=== PATIENT | female | born 1945 | race Caucasian/White ===

== ENCOUNTER → 2016-11-06 | Outpatient (CLI) | payer MEDICARE, BC | END | disposition home or self-care (01) | LOC: LABWHC1 16:48 | PROVIDERS: ATTEND Psychiatry & Neurology Pain Medicine | DX: R20.2 Paresthesia of skin (principal) | CPT/HCPCS: 36415; 83519 ==

== ENCOUNTER → 2017-08-09 | Outpatient (CLI) | payer MEDICARE, BC ==
--- NOTE | 2017-08-09 14:01 | CT ---
EXAMINATION TYPE: CT brain wo con DATE OF EXAM: 08/09/2017 COMPARISON: NONE HISTORY: 72-year-old female with fall and pain TECHNIQUE: Examination was done in axial plane without intravenous contrast. Coronal and sagittal r econstructions performed. CT DLP: 1121 mGycm Automated exposure control for dose reduction was used. FINDINGS: There is no evidence of acute intracranial hemorrhage, acute ischemic changes, mass, mass-effect, or extra-axial fluid collection. There is no effacement of cerebral sulci or basal subarachnoid cister ns. There is no hydrocephalus. There is no midline shift. Youssef-white matter distinction is preserv ed. Prominent perineural space versus old lacunar infarct left basal ganglia. Leftward nasal septal deviation. Left frontal sinus hypoplastic. Mild mucosal thickening floor of the right maxillary sinus. Mastoid air cells well pneumatized. IMPRESSION: No acute intracranial abnormality seen. Old lacunar infarct versus prominent perivascular space in th e left basal ganglia.
== END | disposition home or self-care (01) ==
LOC: RADCTMAIN 13:22
PROVIDERS: ATTEND Internal Medicine
DX: S00.83XA Contusion of other part of head, initial encounter (principal)
CPT/HCPCS: 70450

== ENCOUNTER → 2018-01-26 | Outpatient (CLI) | payer MEDICARE, BC ==
--- NOTE | 2018-01-26 16:19 | XR ---
Left ankle and left foot HISTORY: Left ankle and left foot pain No comparisons There is postop changes to the second digit. Ankylosis is present at the proximal interphalangeal nevin nt, distal interphalangeal joint. Cerclage wire is in place. Bone mineralization is reduced. There is mild hallux valgus deformity present. Arthropathy noted at the distal interphalangeal joint of the t hird and fifth digits. There is arthropathy present at the tarsometatarsal joint of the first digit, intertarsal joints. Plantar calcaneal spur is present. Calcification present along the plantar aponeu rosis. Tibiotalar joint is intact. Some mild marginal spurring. IMPRESSION: Osteoarthritis. No definite fracture or dislocation, decreased bone mineralization could limit sensitivity, follow-up as indicated.
== END ==
LOC: RADXRYALE 13:53
PROVIDERS: ATTEND Internal Medicine
DX: M19.072 Primary osteoarthritis, left ankle and foot (principal)

== ENCOUNTER → 2018-04-13 | Outpatient (CLI) | payer MEDICARE, BC ==
--- NOTE | 2018-04-14 07:07 | US ---
EXAMINATION TYPE: US venous Doppler duplex LE RT DATE OF EXAM: 04/13/2018 5:10 PM COMPARISON: NONE CLINICAL HISTORY: I80.9 Phlebitis and thrombophlebitis of unspecified. Patient stated has right calf pain today and x 2 months; denies leg swelling; history of morphine pump for prior back surgeries at cervical neck and lumbar areas. SIDE PERFORMED: Right TECHNIQUE: The lower extremity deep venous system is examined utilizing real time linear array sonog robert with graded compression, Doppler sonography and color-flow sonography. VESSELS IMAGED: Common Femoral Vein Deep Femoral Vein Greater Saphenous Vein * Femoral Vein Popliteal Vein Small Saphenous Vein * Proximal Calf Veins (* superficial vessels) Right Leg: Negative for DVT IMPRESSION: There is no evidence for DVT at this time.
== END | disposition home or self-care (01) ==
LOC: RADUSWWP 16:41
PROVIDERS: ATTEND Orthopaedic Surgery Hand Surgery
DX: M79.661 Pain in right lower leg (principal)

== ENCOUNTER 2018-12-14 11:44 | Day surgery (SDC) | payer MEDICARE ==
[2018-12-12 11:12] VITALS: BMI 30.7
[~2018-12-14 11:44] MED LIST: DEXAMETHASONE SOD PHOSPHATE 10 MG/ML 1 ML VIAL IV ONE; LIDOCAINE 1% 20 ML VIAL (10MG/ML) FOR IV START INTRADERMA PRN; MIDAZOLAM 2 MG/2 ML VIAL IV PRN; ONDANSETRON 4 MG/2 ML VIAL IVP ONE; fentaNYL (PF) 50 MCG/ML 2 ML AMP IV PRN
[2018-12-14] MEDS: LACTATED RINGERS 1,000 ML IV SCH ×2 (12:13→12:54)
[2018-12-14] MEDS ORDERED: PROPOFOL 10 MG/ML 20 ML VIAL IV ONE (12:51)
[2018-12-14] MEDS ORDERED: KETAMINE 10 MG/ML 20 ML VIAL ONE (12:51)
[2018-12-14] MEDS ORDERED: LIDOCAINE 1% INJ 10MG/ML (20 ML MDV) ONE (12:51)
[2018-12-14] MEDS ORDERED: MIDAZOLAM 2 MG/2 ML VIAL ONE (12:51)
[2018-12-14] MEDS ORDERED: ROPIVACAINE 5 MG/ML 30 ML VIAL MISCELLANE ONE (13:05)
--- NOTE | 2018-12-14 13:45 | P.OP ---
Date of Procedure: 12/14/18 Preoperative Diagnosis: Hammer digit deformity third digit left foot Postoperative Diagnosis: Same Procedure(s) Performed: Arthrodesis third digit left foot with pin fixation Surgeon: Gordy Montoya Operative Findings: Unremarkable Description of Procedure: On the date of surgery the patient was taken to the operating room in good condition. She was placed on the operating table in supine position where an IV was started and adequate IV anesthetic agents were utilized. Anesthesia was then further supplemented with approximately 6 mL of 5% ropivacaine given in a digital block to the third ray complex of the patient's left foot The patient's left foot were then prepped and draped in usual aseptic manner and web roll padding was placed above the malleoli of the patient's left ankle The patient's left foot and ankle were then elevated and exsanguinated of blood utilizing an Esmarch bandage. The ankle tourniquet was then inflated proximally 250 mmHg At this time attention was directed to the dorsal aspect of the third digit of the left foot where an approximately 2 cm linear incision was made the incision was deepened via sharp dissection down through the level of subcutaneous tissue layers all neurovascular structures encountered were identified isolated and were retracted deep along the medial and lateral sides of the proximal interphalangeal joint using blunt technique. The extensor digitorum longus tendon overlying the proximal interphalangeal joint was then incised sharply and underscored and retracted from the underlying bone collateral ligaments on either side of the joint were then incised sharply the head of the capital fragment of the proximal phalanx was then developed through the incision site and clamped utilizing I will clamp the head was resected it a 90 angle to the shaft and removed in total from the surgical site. This oscillating bone saw was then used to remove the base of the middle phalanx. Throughout the surgical procedure copious amounts sterile saline solution was used to irrigate the surgical site a 0.045 K wire was then driven distally through the middle and distal phalanx and then retrograded back into the proximal phalanx. Ends of extensor digitorum longus to the third toe were then shortened and coaptated and maintained utilizing 3-0 excised in simple interrupted suture. Skin edges were then coaptated and maintained utilizing 4-0 nylon simple interrupted suture Adaptic Kerlix fluffs four-inch conformer and 4 inch Coban was used to form a compression dressing and the ankle tourniquet to the left ankle was deflated adequate hemostatic return was seen in all digits of the left foot specifically the third toe the patient tolerated the surgery and anesthesia well was taken to recovery room in good postoperative condition
[2018-12-14 13:49] VITALS: TEMP 97.8
[2018-12-14 14:24] VITALS: RESP 18
[2018-12-14 15:11] VITALS: BP 147/80; PULSE 91
== END 2018-12-14 15:42 | disposition home or self-care (01) ==
LOC: OR 11:44
PROVIDERS: ATTEND Podiatrist Foot & Ankle Surgery
DX: M20.42 Other hammer toe(s) (acquired), left foot (principal); F41.9 Anxiety disorder, unspecified; I10 Essential (primary) hypertension; Z90.710 Acquired absence of both cervix and uterus; Z98.51 Tubal ligation status; Z96.692 Finger-joint replacement of left hand; G89.29 Other chronic pain; Z96.89 Presence of other specified functional implants; Z79.891 Long term (current) use of opiate analgesic; G25.81 Restless legs syndrome; G43.909 Migraine, unspecified, not intractable, without status migrainosus; E04.1 Nontoxic single thyroid nodule; K21.9 Gastro-esophageal reflux disease without esophagitis; J45.909 Unspecified asthma, uncomplicated; G47.33 Obstructive sleep apnea (adult) (pediatric); Z86.73 Personal history of transient ischemic attack (TIA), and cerebral infarction without residual deficits; K76.0 Fatty (change of) liver, not elsewhere classified; Z88.2 Allergy status to sulfonamides; Z88.8 Allergy status to other drugs, medicaments and biological substances; Z88.6 Allergy status to analgesic agent; Z91.041 Radiographic dye allergy status; Z79.899 Other long term (current) drug therapy
CPT/HCPCS: 28285; C1713; J2250; J1100; J0690; J2405; J2001; J2795; J2704

== ENCOUNTER → 2019-10-04 | Outpatient (CLI) | payer MEDICARE ==
--- NOTE | 2019-10-04 16:56 | CONS ---
CONSULTATION DATE OF SERVICE: 10/04/2019. A 74-year-old lady who has been [facility] for obstructive sleep apnea-hypopnea syndrome. The patient has been diagnosed with obstructive sleep apnea [place] started on treatment with CPAP there, but stopped using equipment more than 3 years ago. Presently, her sleep schedule from around 10 p.m. to 8 am. No TV in bedroom. She sleeps primarily on the side position. She wakes up from sleep 4 times with 4 episodes of nocturia. Positive history of sleepwalking, palpitation, sleep talking, sweating during the sleep, episodes of choking, stopped breathing, gasping for air. In the morning, patient wakes up tired, falling asleep during the day, worried about her sleep. [place] Sleepiness Scale is in extremely high range of 23. PAST MEDICAL HISTORY: Positive for hypertension, acid reflux, rheumatoid arthritis, morphine pump. PAST SURGICAL HISTORY: Cholecystectomy, hysterectomy, surgery for right knee fracture. MEDICATIONS: Citalopram, omeprazole, losartan, hydrochlorothiazide, Baclofen, diltiazem, hydrocodone, potassium supplement, furosemide, different vitamins, diphenhydramine, fluticasone. SOCIAL HISTORY: Negative for smoking or using alcohol. REVIEW OF SYSTEMS: Multiple awakenings from sleep, tiredness and sleepiness during the day. PHYSICAL EXAM: lady without distress, BP 146/58, HR 72, RR 16, height 5, 3, weight 189, body mass index 32, temperature 98.0, oxygen saturation at room air 93%. OROPHARYNX: Extremely low position of soft palate. Mallampati 4. Neck 16-1/2 inches in circumference. ABDOMEN: Obese. NECK: Supple, no JVD. Thyroid is not palpable. LUNGS: Clear to percussion and to auscultation. Good air exchange. No wheezing or rhonchi. HEART: S1, S2 regular. No murmurs, gallops, or rubs. EXTREMITIES: No clubbing or cyanosis. 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 Cranial nerves 2 to 7 intact. There is no fasciculation or atrophy. noted. No focal deficits observed. IMPRESSION: 1. Multiple awakenings from sleep with choking and gasping for air. Extremely significant excessive daytime sleepiness. Low position of soft palate. 2. History of obstructive sleep apnea in the past. Obstructive sleep apnea-hypopnea syndrome. 3. Patient is on morphine pump, possibly central sleep apnea. 4. Hypertension. 5. Acid reflux. 6. 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 7. History of rheumatoid arthritis. 8. Morphine pump. 9. Status post surgical treatment of right knee fracture. 10.Status post L5 laminectomy. 11.Status post cholecystectomy. 12.Status post hysterectomy. 13.Obesity, body mass index 32. PLAN: 1. Polysomnography for evaluation of patient's breathing during sleep. 2. CPAP/BiPAP titration if sleep study confirms obstructive sleep apnea-hypopnea syndrome. 3. Preferable position during sleep on the side. 4. No driving if patient feels any sleepiness. 5. I will see patient for follow up visit to explain results of testing and following plan. Thank you very much for referring this patient for consultation. Sincerely, Garrick Morrison MD, PhD, FAASM Diplomat of [place] [employer] [place] [employer] [facility] [place] MMODL / LOYDAN: [id number] /
== END | disposition home or self-care (01) ==
LOC: SLEEP 14:29
PROVIDERS: ATTEND Internal Medicine
DX: G47.33 Obstructive sleep apnea (adult) (pediatric) (principal); I10 Essential (primary) hypertension; K21.9 Gastro-esophageal reflux disease without esophagitis; E66.9 Obesity, unspecified; Z68.32 Body mass index [BMI] 32.0-32.9, adult; Z90.49 Acquired absence of other specified parts of digestive tract; Z98.1 Arthrodesis status; Z98.890 Other specified postprocedural states; Z90.710 Acquired absence of both cervix and uterus; Z79.891 Long term (current) use of opiate analgesic; Z79.899 Other long term (current) drug therapy
CPT/HCPCS: 99211

== ENCOUNTER → 2022-12-28 | Outpatient (CLI) | payer MEDICARE ==
[2022-12-28 16:46] LABS: INR 0.9 (<1.2); Partial Thromboplastin Time 24.9 sec (22.0-30.0); Prothrombin Time 10.1 sec (9.0-12.0)
[2022-12-28 19:42] LABS: Appearance,Urine Clear (Clear); Bilirubin,Urine Negative (Negative); Blood,Urine Negative (Negative); Color,Urine Yellow (Yellow); Ketones,Urine Negative (Negative); Nitrite,Urine Negative (Negative); PH, Urine 8.5; Specific Gravity,Urine 1.017 (1.001-1.030); Urobilinogen,Urine 0.2 E.U./DL
[2022-12-28 19:48] LABS: Bacteria,Urine None Seen (None Seen)
[2022-12-28 21:15] LABS: HCT 40.4 % (37.2-46.3); HGB 12.7 d/dL (12.0-15.0); MCH 29.2 pg (27.0-32.0); MCHC 31.4 d/dL (32.0-37.0); MCV 92.9 FL (80.0-97.0); Mean Platelet Volume 11.5 FL (9.5-12.2); NRBC Per 100 WBC 0 X 10*3/uL (0.00-0.01); Platelet Count 166 X 10*3/uL (140-440); RBC 4.35 X 10*6/uL (4.10-5.20); RDW 12.8 % (11.5-14.5); WBC 5.88 X 10*3/uL (4.50-10.00)
[2022-12-28 21:35] LABS: BUN/Creat Ratio 13.83 Ratio (12.00-20.00); Blood Urea Nitrogen 8.3 mg/dL (9.0-27.0); Chloride 100 mmol/L (96-109); Glucose 82 mg/dL (70-110); Potassium 4.2 mmol/L (3.5-5.5); Sodium 140 mmol/L (135-145)
[2022-12-28 21:36] LABS: ALT 16 U/L (8-44); AST 21 U/L (13-35); Albumin 4.6 d/dL (3.8-4.9); Albumin/Globulin Ratio 1.92 Ratio (1.60-3.17); Alkaline Phosphatase 108 U/L (41-126); Calcium 9.5 mg/dL (8.7-10.3); Carbon Dioxide 28.4 mmol/L (21.6-31.8); Globulin 2.4 d/dL (1.6-3.3); Total Bilirubin 0.3 mg/dL (0.3-1.2)
== END | disposition home or self-care (01) ==
LOC: LABPAT 14:58
PROVIDERS: ATTEND Orthopaedic Surgery
DX: Z01.812 Encounter for preprocedural laboratory examination (principal); M19.012 Primary osteoarthritis, left shoulder; R61 Generalized hyperhidrosis; R11.0 Nausea; R68.83 Chills (without fever); R73.01 Impaired fasting glucose
CPT/HCPCS: 80053; 81001; 83036; 84443; 85027; 85610; 85730; 87070

== ENCOUNTER → 2023-06-24 | Outpatient (CLI) | payer MEDICARE ==
[2023-06-24 13:26] LABS: Partial Thromboplastin Time 25.2 sec (22.0-30.0); Prothrombin Time 10.5 sec (10.0-12.5)
[2023-06-24 16:03] LABS: ALT 12 U/L (8-44); AST 13 U/L (13-35); Albumin 4.4 g/dL (3.8-4.9); Albumin/Globulin Ratio 1.91 Ratio (1.60-3.17); Alkaline Phosphatase 107 U/L (41-126); BUN/Creat Ratio 18.17 Ratio (12.00-20.00); Blood Urea Nitrogen 10.9 mg/dL (9.0-27.0); Calcium 9.4 mg/dL (8.7-10.3); Carbon Dioxide 28.7 mmol/L (21.6-31.8); Chloride 101 mmol/L (96-109); Globulin 2.3 g/dL (1.6-3.3); Glucose 100 mg/dL (70-110); Potassium 4.2 mmol/L (3.5-5.5); Sodium 140 mmol/L (135-145); Total Bilirubin 0.3 mg/dL (0.3-1.2); Total Protein 6.7 g/dL (6.2-8.2)
[2023-06-24 17:03] LABS: HGB 11.6 g/dL (12.0-15.0); MCH 28.1 pg (27.0-32.0); MCHC 31.4 g/dL (32.0-37.0); MCV 89.6 FL (80.0-97.0); Mean Platelet Volume 11.7 FL (9.5-12.2); NRBC Per 100 WBC 0 X 10*3/uL (0.00-0.01); Platelet Count 169 X 10*3/uL (140-440); RBC 4.13 X 10*6/uL (4.10-5.20); RDW 13.4 % (11.5-14.5); WBC 5.39 X 10*3/uL (4.50-10.00)
== END | disposition home or self-care (01) ==
LOC: LABPAT 12:14
PROVIDERS: ATTEND Orthopaedic Surgery
DX: Z01.812 Encounter for preprocedural laboratory examination (principal); Z22.322 Carrier or suspected carrier of Methicillin resistant Staphylococcus aureus; M16.11 Unilateral primary osteoarthritis, right hip
CPT/HCPCS: 36415; 80053; 85027; 85610; 85730; 86850; 86900; 86901; 87070

== ENCOUNTER 2023-07-05 05:38 | Inpatient (IN) | payer MEDICARE ==
[~2023-07-05 05:38] MED LIST changes: -DEXAMETHASONE SOD PHOSPHATE 10 MG/ML 1 ML VIAL IV ONE; -LIDOCAINE 1% 20 ML VIAL (10MG/ML) FOR IV START INTRADERMA PRN; -MIDAZOLAM 2 MG/2 ML VIAL IV PRN; -ONDANSETRON 4 MG/2 ML VIAL IVP ONE; +TRANEXAMIC 1,000 MG/100ML-NACL 1,000 MG in SALINE 1 100ML.BAG IVPB PRN; -fentaNYL (PF) 50 MCG/ML 2 ML AMP IV PRN
[2023-07-05] MEDS ORDERED: fentaNYL (PF) 50 MCG/ML 2 ML AMP IVP PRN (05:43)
[2023-07-05] MEDS ORDERED: LIDOCAINE 1% (10MG/ML) FOR IV START INTRADERMA PRN (05:43)
[2023-07-05] MEDS ORDERED: METOCLOPRAMIDE 5 MG/ML 2 ML VIAL IVP PRN (05:43)
[2023-07-05] MEDS ORDERED: MIDAZOLAM 2 MG/2 ML VIAL IV PRN (05:43)
[2023-07-05] MEDS: LACTATED RINGERS 1,000 ML IV SCH (05:53)
[2023-07-05] MEDS: MIDAZOLAM 2 MG/2 ML VIAL IVP ONE ×2 (06:38→09:07)
[2023-07-05] MEDS: ACETAMINOPHEN TAB 500 MG TAB PO PRN (06:42)
[2023-07-05] MEDS: GABAPENTIN 300 MG CAP PO PRN (06:42)
[2023-07-05] MEDS: ONDANSETRON 4 MG/2 ML VIAL IVP ONE (06:42)
[2023-07-05] MEDS: DEXAMETHASONE SOD PHOSPHATE 4 MG/ML 1 ML VIAL IV ONE (06:42)
[2023-07-05] MEDS ORDERED: GLYCOPYRROLATE 0.2 MG/ML 2 ML VIAL ONE (06:55)
[2023-07-05] MEDS ORDERED: hydrALAZINE HCL 20 MG/ML 1 ML VIAL ONE (06:55)
[2023-07-05] MEDS ORDERED: DEXAMETHASONE SOD PHOSPHATE 4 MG/ML 1 ML VIAL ONE (06:55)
[2023-07-05] MEDS ORDERED: fentaNYL (PF) 50 MCG/ML 2 ML AMP ONE (06:55)
[2023-07-05] MEDS ORDERED: ROCURONIUM 10 MG/ML (5 ML VIAL) IV ONE (06:55)
[2023-07-05] MEDS ORDERED: LIDOCAINE 1% INJ 10MG/ML (20 ML MDV) ONE (06:55)
[2023-07-05] MEDS ORDERED: PROPOFOL 10 MG/ML 20 ML VIAL IV ONE (06:55)
[2023-07-05] MEDS ORDERED: NEOSTIGMINE 1 MG/ML 10 ML VIAL ONE (06:55)
[2023-07-05] MEDS ORDERED: HYDROmorphone (PF) 1 MG/ML ONE (06:55)
[2023-07-05] MEDS ORDERED: ROPIVACAINE 5 MG/ML 30 ML VIAL ONE (06:55)
[2023-07-05] MEDS ORDERED: TRANEXAMIC 1,000 MG/100ML-NACL PREMIX BAG ONE (06:55)
[2023-07-05] MEDS: ceFAZolin 1,000 MG in SODIUM CHLORIDE 0.9% 1,000 ML IRRIGATION ONE (07:00)
[2023-07-05] MEDS: ROPIVACAINE 5 MG/ML 30 ML VIAL MISCELLANE ONE ×2 (07:19→08:15)
--- NOTE | 2023-07-05 08:18 | P.OP ---
Date of Procedure: 07/05/23 Preoperative Diagnosis: Severe osteoarthritis right hip Postoperative Diagnosis: Severe osteoarthritis right hip Procedure(s) Performed: Right total hip arthroplasty with a direct anterior approach Implants: [employer] Polarstem standard size 5 with a collar [employer] R3, 3 hole hemispherical acetabular shell, 52 mm [employer] Reflection 6.5 mm cancellus screw, 20 mm, 25 mm [employer] R3, XLPE 20 acetabular liner [employer] Oxinium femoral head 36 mm, -3 All components were press-fit. The articulation is Oxinium on polyethylene. Anesthesia: GETA Surgeon: Ebenezer Duckworth Rental Counter Clerk #1: Virginia Stephens Estimated Blood Loss (ml): 500 Pathology: none sent Condition: stable Disposition: PACU Indications for Procedure: After failure of conservative treatment we discussed the surgical and non surgical treatment options at length. Patient wishes to proceed with a total hip arthroplasty with a direct anterior approach. Complications specific to this procedure were discussed at length, including but not limited to infection, leg length discrepancy, dislocation, nerve injury, and fracture. Covid-19 was also discussed at length with the patient, and they are aware of the current policies and procedures. The patient was given the option of delaying surgery, but they elect to proceed knowing these risks. Patient is aware of all these complications and informed consent was obtained Operative Findings: The operative findings are consistent with severe osteoarthritis of the right hip Description of Procedure: The patient was seen and evaluated in the preoperative area and the consent was reviewed. The operative site was marked with a skin marker. The patient verified the procedure and operative site. A ASHLEE block was placed by anesthesia in the preoperative area. The patient was then brought to the operating room and given preoperative antibiotics intravenously. 1 g of Tranexamic acid was also given intravenously. A general anesthetic was administered by the anesthesia department. The patient was then placed on the [place] table with the bony prominences well-padded. The hip area was then prepped with a ChloraPrep solution and draped in the usual sterile fashion. A universal timeout was then performed, which confirmed the patient's name, surgical site, ALLERGIES, and procedure being performed on the consent. Next the incision site was located at 1 cm distal and 4 cm lateral to the anterior superior iliac spine. The skin and subcutaneous tissues were sharply incised. Incision was carefully dissected down to the fascia overlying the tensor fascia virgen muscle. This fascia was then incised in line with the muscle fibers. Care was taken to stay laterally in order to avoid injuring the lateral femoral cutaneous nerve. Next, using blunt finger dissection, the tensor fascia virgen muscle was dissected off its investing fascia. The muscle was then carefully retracted laterally with a cobra retractor over the lateral neck of the femur. Next, the circumflex vessels were identified and cauterized using the Aquamantis device. The anterior hip capsule was then exposed. The capsule was then opened and an inverted T fashion. The retractors were then placed intracapsularly. The retractors were maintained intracapsular throughout the procedure. The proximal femur was then visualized. Fluoroscopic x-rays were then taken in order to evaluate the preoperative leg lengths. A small amount of traction was placed on the leg. The femoral neck was then osteotomized at the appropriate level above the lesser trochanter. A small wedge of bone was then removed from the remaining femoral head. Next, using a corkscrew the femoral head was removed from the acetabulum. On gross visual inspection, the femoral head had complete loss of articular cartilage and multiple periarticular osteophytes. The femoral head was then measured. Attention was then turned to the acetabulum. The acetabulum was exposed and any remaining labrum was excised. Sequential reaming of the acetabulum was performed using fluoroscopic guidance until there was a good bed of bleeding cancellus bone. When the appropriate size was reached, a trial was then placed. The position and fit of the trial was checked with fluoroscopy. The trial was then removed. Then, using fluoroscopic guidance, the final implant was impacted at 20 of anteversion and 40 of abduction, and fully seated in the acetabulum. 2 screws were then placed in the acetabulum. Again fluoroscopy was used to check position of the screws. Next, the liner was then impacted, with a 20 elevated liner located in the anterior superior quadrant. Component locking was confirmed. Attention was then directed to the femur. With the aid of the [place] table, the femur was externally rotated to approximately 130, extended, and adducted under the opposite leg. A side hook was then placed under the proximal femur, and the side hook elevator was used to elevate the proximal femur while releasing the capsule. Retractors were then placed. A capsular release was performed, as well as a release of the conjoined tendon, which afforded excellent visualization of the proximal femur. Next, a box osteotome was used to lateralize the proximal femur. A hard metals engraver hand was then used to locate the femoral canal. Sequential broaching was then performed with appropriate size which afforded excellent fixation in the proximal femur. A trial was then placed with appropriate head and neck, and the hip was gently reduced with the aid of the [place] table. Fluoroscopy was then used to check position of the components, as well as to evaluate the leg lengths and offset. The leg lengths and offset were measured as closely as possible to ensure stability of the hip. The hip was then gently dislocated and the trials were then removed. Final implants were then impacted and the hip was again reduced. Final fluoroscopic x-rays confirmed that the components were in anatomic position. The leg lengths and offset were measured and were found to coincide with the trial measurements. The hip was also taken through range of motion, and found to be stable. The hip was then copiously irrigated with antibiotic solution with pulsatile lavage. The hip was then irrigated with Irrisept solution. The soft tissues were then injected with a ropivacaine solution. A second dose of 1 g of Tranexamic acid was also given intravenously. The fascia was then closed with 2-0 strata fix suture. The subcutaneous tissue was closed with 3-0 Vicryl. The subcuticular tissue was closed with 3-0 strata fix suture. The skin was then closed with Exofin skin glue. After the glue and dried, and Optifoam silver impregnated dressing was applied. The patient was then transferred to the recovery room in stable condition. The bindery library technical assistant NADER Atkinson was required due to the complexity of surgery, and the need for skilled surgical first assistant for positioning, draping, exposure, retraction, and closure of the wound.
[2023-07-05] MEDS ORDERED: MAGNESIUM HYDROXIDE 2,400 MG/30 ML CUP PO PRN (08:46)
[2023-07-05] MEDS ORDERED: NALOXONE 0.4 MG/ML 1 ML VIAL IV PRN (08:46)
[2023-07-05] MEDS ORDERED: HYDROmorphone 0.5 MG/0.5 ML SYRINGE IVP PRN ×2 (08:46)
[2023-07-05] MEDS ORDERED: ONDANSETRON 4 MG/2 ML VIAL IVP PRN (08:46)
[2023-07-05] MEDS: HYDROmorphone 0.5 MG/0.5 ML SYRINGE IVP PRN ×2 (08:49→12:58)
[2023-07-05] MEDS: LABETALOL 5 MG/ML VIAL MDV IVP ONE (09:03)
[2023-07-05] MEDS: LACTATED RINGERS 1,000 ML IV ONE (09:11)
--- NOTE | 2023-07-05 10:14 | XR ---
EXAMINATION TYPE: XR Hip Limited RT DATE OF EXAM: 07/05/2023 9:15 AM CLINICAL INDICATION:Female, 78 years old with history of Status post hip surgery, assess surgical ali gnment; [facility] COMPARISON: None. TECHNIQUE: XR Hip Limited RT; hip was examined in the frontal and lateral projections and a AP pelvis . FINDINGS: No evidence for acute process, joint dislocation or significant soft tissue swelling. Met al hardware is intact and well-positioned. IMPRESSION: No acute process.
[2023-07-05] MEDS ORDERED: FLUTICASONE 50MCG/SPRAY NASAL 16GM EA NOSTRIL PRN (13:59)
[2023-07-05] MEDS ORDERED: ALBUTEROL HFA INHALER INHALATION PRN (13:59)
[2023-07-05] MEDS: HYDROcodone/APAP 7.5-325MG 1 EACH TAB PO PRN ×2 (15:04→23:44)
[2023-07-05] MEDS: ASPIRIN 81 MG PO SCH (16:01)
[2023-07-05] MEDS: MONTELUKAST 10 MG TAB PO SCH (20:13)
[2023-07-05] MEDS: BACLOFEN 10 MG TAB PO PRN (20:13)
[2023-07-05] MEDS: SENNOSIDES-DOCUSATE SODIUM 1 EACH TAB PO SCH (20:13)
--- NOTE | 2023-07-05 20:55 | P.ANPRN ---
Procedure Note - Anesthesia - Nerve Block Performed Right Anton Single Time Out Performed: Yes Date of Procedure: 07/05/23 Procedure Start Time: 06:37 Procedure Stop Time: 06:49 Location of Patient: PreOp Indication: Acute Post-Operative Pain, Requested by Surgeon Sedation Type: Sedate with meaningful contact maintained Preparation: Sterile Prep Position: Supine Needle Types: Pajunk Needle Gauge: 21 Ultrasound used to visualize needle placement: Yes Ultrasound used to observe medication spread: Yes Blood Aspirated: No Pain Paresthesia on Injection Noted: No Resistance on Injection: Normal Image Stored and Saved: Yes Events: Uneventful and Well Tolerated (Ropivacaine 0.5% 20 cc plus dexamethasone 4 mg)
[2023-07-05] MEDS: DICLOFENAC SODIUM GEL 100 GM TUBE TOPICAL PRN (21:25)
[2023-07-05] MEDS: SODIUM CHLORIDE 0.9% 1,000 ML IV SCH (21:25)
--- NOTE | 2023-07-06 01:05 | P.CONS ---
History of Present Illness - Reason for Consult Consult date: 07/05/23 Medical management - Chief Complaint Right total hip arthroplasty - History of Present Illness Patient is a 78-year-old female with a past medical history of COPD, fibromyalgia, history of CVA with no residual weakness, migraine headaches, hypertension, hyperlipidemia, fibroatelectasis, obstructive sleep apnea not on CPAP, hiatal hernia, IBS, prior history of back surgery and neck surgery, depr ession and other multiple medical problems was admitted to the hospital for right total hip arthroplasty. Patient's blood pressure was elevated up to 199 over 61 mmHg perioperatively. Currently complains of right hip pain. Denies any dizziness or lightheadedness. Does have nausea. No episodes of vomiting. Denies any fever or chills. No complaints of chest pain or shortness of breath. Laboratory data is not available at this time. Review of Systems Constitutional: Patient denies any fever or chills . No generalized weakness or weight loss. Abdomen: Patient complains of nausea. No episodes of vomiting. No diarrhea and abdominal pain. Cardiovascular: Patient denies any chest pain or short of breath no palpitations. Respiratory: patient denied any cough is from production. No shortness of breath Neurologic: Patient denied any numbness or tingling headache. Musculoskeletal: Patient denies any complaints of joint swelling or deformity. Right hip pain Skin: Negative Psychiatric: Negative Endocrine: No heat or cold intolerance. No recent weight gain. Genitourinary: No dysuria or hematuria. All other 14 point ROS negative except the above Past Medical History Past Medical History: Asthma, Cancer, COPD, CVA/TIA, Fibromyalgia, GERD/Reflux, Hyperlipidemia, Hypertension, Liver Disease, Osteoarthritis (OA), Pneumonia, Rheumatoid Arthritis (RA), Skin Disorder, Sleep Apnea/CPAP/BIPAP Additional Past Medical History / Comment(s): migraines, stroke-(on MRI) no residual effects, not using CPAP used, hiatal hernia, ulcer, IBS, fatty liver, eczema, thyroid nodule, sjhrogens, skin cancer, hx fx neck, kidney stones History of Any Multi-Drug Resistant Organisms: None Reported Past Surgical History: Appendectomy, Back Surgery, Cholecystectomy, Heart Catheterization, Hysterectomy, Joint Replacement, Orthopedic Surgery, Tubal Ligation Additional Past Surgical History / Comment(s): neck surgery(rods,plate,screws) X2., left shoulder surgery, toe surgeries(left foot 2nd not and rt foot 4th toe), thumb joint replacement rt hand, trigger finger rt thumb, TLS, hx. cleft palate surg, left shoulder replaced in Sept. Past Anesthesia/Blood Transfusion Reactions: Motion Sickness Additional Past Anesthesia/Blood Transfusion Reaction / Comm: hx fx neck/surgery with rods,screws,plate) -some limitations in movement of neck Past Psychological History: Depression Smoking Status: Never smoker Past Alcohol Use History: None Reported Past Drug Use History: None Reported - Past Family History Sister(s) Family Medical History: Cancer Medications and Allergies Home Medications Medication Instructions Recorded Confirmed Type Cholecalciferol (Vitamin D3) 5,000 unit PO DAILY 12/12/18 06/30/23 History [Vitamin D3] Fluticasone Nasal [place] [Flonase 1 spray EA NOSTRIL DAILY PRN 12/12/18 07/05/23 History Nasal [place]] Furosemide [Lasix] 40 mg PO DAILY PRN 12/12/18 07/05/23 History Hydrocodone/Acetaminophen [Corea 1 tab PO Q6H PRN 12/12/18 07/05/23 History 10-325] Morphine Pump(Dose Unknown) 1 applicate EPIDURAL CONTINUOUS 12/12/18 06/30/23 History Potassium Chloride ER [K-Dur 10] 10 meq PO DAILY PRN 12/12/18 07/05/23 History Vitamin E (Dl,Tocopheryl Acet) 100 unit PO DAILY 12/12/18 06/30/23 History [Vitamin E] Baclofen 10 mg PO TID 12/14/18 07/05/23 History Albuterol Sulfate [Proair 1 puff INHALATION DAILY PRN 01/07/23 07/05/23 History Digihaler] Losartan-Hctz 50-12.5 mg [Hyzaar 1 tab PO QAM 01/07/23 07/05/23 History 50-12.5] Metoprolol Succinate (ER) [Toprol 50 mg PO QAM 01/07/23 07/05/23 History XL] Montelukast [Singulair] 10 mg PO HS 01/07/23 07/05/23 History Pantoprazole [Protonix] 40 mg PO QAM 01/07/23 07/05/23 History Sertraline [Zoloft] 100 mg PO QAM 01/07/23 07/05/23 History Docusate [Colace] 100 mg PO DAILY 07/01/23 07/05/23 History Apixaban [Eliquis] 2.5 mg PO BID 30 Days #60 tab 07/05/23 Rx HYDROcodone/APAP 7.5-325MG [Corea 1 - 2 tab PO Q6H PRN #32 tab 07/05/23 Rx 7.5-325] Sennosides [Senokot] 2 tab PO DAILY PRN #60 tablet 07/05/23 Rx Allergies Allergy/AdvReac Type Severity Reaction Status Date / Time celecoxib [From Celebrex] Allergy Severe Dyspnea Verified 06/30/23 17:02 Iodinated Contrast Media Allergy Severe Anaphylaxis Verified 06/30/23 17:02 [Iodinated Contrast- Oral and IV Dye] iohexol [From Omnipaque] Allergy Severe Anaphylaxis Verified 06/30/23 17:02 meloxicam [From Mobic] Allergy Severe Dyspnea Verified 06/30/23 17:02 aspirin Allergy stomach Verified 06/30/23 17:02 bleed gadoteridol [From Prohance] Allergy Rash/Hives Verified 06/30/23 17:02 naproxen Allergy Rash/Hives Verified 06/30/23 17:02 Sulfa (Sulfonamide Allergy Swelling Verified 06/30/23 17:02 Antibiotics) Physical Exam Vitals: Vital Signs Temp Pulse Resp BP Pulse Ox 07/05/23 12:41 65 16 110/51 95 07/05/23 12:15 65 20 111/46 94 L 07/05/23 11:45 74 16 137/51 93 L 07/05/23 11:16 65 16 118/47 96 07/05/23 11:14 93 L 07/05/23 11:11 88 L 07/05/23 11:08 93 L 07/05/23 10:57 63 16 163/68 97 07/05/23 10:26 68 16 137/59 95 07/05/23 09:56 68 14 139/56 93 L 07/05/23 09:27 65 16 154/71 98 07/05/23 09:11 72 16 154/64 97 07/05/23 08:56 87 18 199/61 97 07/05/23 08:40 97.0 F L 77 16 188/67 98 07/05/23 06:49 73 14 119/58 96 07/05/23 06:05 98 F 73 18 141/64 95 Intake and Output 07/04/23 07/05/23 07/05/23 22:59 06:59 14:59 Intake Total 200 1101 Output Total 500 Balance 200 601 Intake: IV 200 1101 Output: Estimated Blood Loss 500 Other: Weight 80.3 kg 80.3 kg PHYSICAL EXAMINATION: Patient is lying in the bed comfortably, no acute distress, awake alert and oriented.. HEENT: Normocephalic. Neck is supple. Pupils reactive. Nostrils clear. Oral cavity is moist. Neck reveals no JVD, carotid bruits, or thyromegaly. CHEST EXAMINATION: Trachea is central. Symmetrical expansion. Bibasilar diminished sounds otherwise lung ftizpatrick clear to auscultation and percussion. CARDIAC: Normal S1, S2 with no gallops. No murmurs ABDOMEN: Soft. Bowel sounds present. Nontender. No organomegaly. No abdominal bruits. Extremities: reveal no edema. No clubbing or cyanosis Neurologically awake, alert, oriented x 2-3 with well-coordinated movements. No gross focal deficits noted Skin: No rash or skin lesions. Psychiatric: Coperative. Nonsuicidal Musculoskeletal: No joint swelling or deformity. Right hip surgical site intact. Assessment and Plan Assessment: Status post right total hip arthroplasty postoperative day 0 Fibromyalgia Hypertension uncontrolled Hyperlipidemia Osteoarthritis Obstructive sleep apnea not using CPAP at home History of migraine headaches Asthma/COPD not in exacerbation History of CVA/TIA with no residual weakness Prior history of neck surgery and left shoulder surgery Depression DVT and GI prophylaxis as per primary team Plan: Patient will be continued on pain management, bowel regimen and encourage incentive spirometry. Patient will be started back on home blood pressure medications and titrate dose as needed. Continue with GI and DVT prophylaxis as per primary team. Follow-up CBC and BMP tomorrow. PT OT will be consulted. Further recommendations based on the clinical course. Thank you for your consult.
[2023-07-06] MEDS: SERTRALINE 100 MG TAB PO SCH (07:41)
[2023-07-06] MEDS: METOPROLOL SUCCINATE (ER) 50 MG TAB.ER.24H PO SCH (07:42)
[2023-07-06] MEDS: PANTOPRAZOLE 40 MG TABLET PO SCH (07:42)
[2023-07-06 09:59] LABS: Basophils % (A) 0 %; Eosinophils % (A) 1 %; HCT 30.5 % (34.0-46.0); HGB 9.7 gm/dL (11.4-16.0); Lymphocytes # (A) 0.8 k/uL (1.0-4.8); Lymphocytes % (A) 11 %; MCH 28.8 pg (25.0-35.0); MCHC 31.8 g/dL (31.0-37.0); MCV 90.7 fL (80.0-100.0); Mean Platelet Volume 8.5; Monocytes # (A) 0.6 k/uL (0-1.0); Monocytes % (A) 8 %; Neutrophils # (A) 5.7 k/uL (1.3-7.7); Neutrophils % (A) 78 %; Platelet Count 147 k/uL (150-450); RBC 3.37 m/uL (3.80-5.40); RDW 13.4 % (11.5-15.5); WBC 7.3 k/uL (3.8-10.6)
[2023-07-06 10:07] LABS: African American GFR (CKD) >90 (>60 ml/min/1.73 sqM); Anion Gap 8 mmol/L; Blood Urea Nitrogen 10 mg/dL (7-17); Calcium 8.3 mg/dL (8.4-10.2); Carbon Dioxide 27 mmol/L (22-30); Chloride 101 mmol/L (98-107); Glucose 127 mg/dL (74-99); Non-African American GFR(CKD) >90 (>60 ml/min/1.73 sqM); Potassium 3.4 mmol/L (3.5-5.1); Sodium 136 mmol/L (137-145)
--- NOTE | 2023-07-06 11:06 | P.PN ---
Subjective Progress Note Date: 07/06/23 This is a 78-year-old fe male who is status post right total hip arthroplasty with direct anterior approach. This is postoperative day #1 and patient is seen and evaluated at bedside today. Patient states that she is having some muscle spasms in the right thigh, but is otherwise doing well. Objective - Vital Signs Vital signs: Vital Signs Temp 98.4 F 07/06/23 07:49 Pulse 93 07/06/23 07:49 Resp 20 07/06/23 07:49 BP 189/70 07/06/23 07:49 Pulse Ox 93 L 07/06/23 07:49 FiO2 Intake & Output 07/05/23 07/06/23 07/06/23 18:59 06:59 18:59 Intake Total 1101 Output Total 500 Balance 601 Weight 80.3 kg Intake: IV 1101 Output: Estimated Blood Loss 500 Other: # Voids 1 4 - Exam Vital signs are stable. Patient is in no acute distress and is alert and oriented 3. Calf is soft and nontender to palpation. Dressing is clean, dry, and intact. Patient has full foot and ankle motion without pain or difficulty. Sensation intact. Neurovascular status and circulatory status are intact. - Labs CBC & Chem 7: 07/06/23 08:23 07/06/23 08:23 Labs: Abnormal Lab Results - Last 24 Hours (Table) 07/06/23 07/06/23 Range/Units 08:23 08:23 RBC 3.37 L (3.80-5.40) m/uL Hgb 9.7 L (11.4-16.0) gm/dL Hct 30.5 L (34.0-46.0) % Plt Count 147 L (150-450) k/uL Lymphocytes # 0.8 L (1.0-4.8) k/uL Sodium 136 L (137-145) mmol/L Potassium 3.4 L (3.5-5.1) mmol/L Glucose 127 H (74-99) mg/dL Calcium 8.3 L (8.4-10.2) mg/dL Assessment and Plan (1) Osteoarthritis of right hip Current Visit: Yes Status: Acute Code(s): M16.11 - UNILATERAL PRIMARY OSTEOARTHRITIS, RIGHT HIP SNOMED Code(s): 522798099532485 (2) S/P total right hip arthroplasty Current Visit: Yes Status: Acute Code(s): Z96.641 - PRESENCE OF RIGHT ARTIFICIAL HIP JOINT SNOMED Code(s): 171253377971 Plan: Continue routine postop care and pain control. Continue anticoagulation with aspirin 81mg BID. Weightbearing as tolerated with a walker. Leave dressing in place for 7 days. Appreciate input from internal medicine. Anticipate discharge to [facility] in the next 24-48 hours.
[2023-07-06] MEDS: POTASSIUM CHLORIDE ER 20 MEQ TAB.ER PO STA (11:58)
[2023-07-06] MEDS: ASPIRIN 81 MG PO SCH (20:45)
[2023-07-06] MEDS ORDERED: APIXABAN 2.5 MG TABLET PO SCH (21:00)
--- NOTE | 2023-07-06 23:52 | P.PN ---
Subjective Progress Note Date: 07/06/23 Patient is a 78-year-old female with a past medical history of COPD, fibromyalgia, history of CVA with no residual weakness, migraine headaches, hypertension, hyperlipidemia, fibroatelectasis, obstructive sleep apnea not on CPAP, hiatal hernia, IBS, prior history of back surgery and neck surgery, depression and other multiple medical problems was admitted to the hospital for right total hip arthroplasty. Patient's blood pressure was elevated up to 199 over 61 mmHg perioperatively. Currently complains of right hip pain. Denies any dizziness or lightheadedness. Does have nausea. No episodes of vomiting. Denies any fever or chills. No complaints of chest pain or shortness of breath. Laboratory data is not available at this time. 07/06/2023 Patient is lying in the bed. Awake alert and oriented. Complains of soreness of the surgical site. No complaints of chest pain or shortness of breath. No nausea vomiting abdominal pain or diarrhea. Blood pressure is elevated today and will be started back on home blood pressure medications. No complaints of fever or chills. No cough or sputum production. Patient is using incentive spirometry. WBC 7.3, hemoglobin 9.7 and platelets 147, sodium 136 potassium 3.4 which is replaced with chloride 101 bicarb is 27 BUN 10 and creatinine 0.55 and blood sugar 127. Calcium 8.3. Current medications reviewed. Objective - Vital Signs Vital signs: Vital Signs Temp 98.4 F 07/06/23 07:49 Pulse 93 07/06/23 07:49 Resp 20 07/06/23 07:49 BP 189/70 07/06/23 07:49 Pulse Ox 93 L 07/06/23 07:49 FiO2 Intake & Output 07/05/23 07/06/23 07/06/23 18:59 06:59 18:59 Intake Total 1101 Output Total 500 Balance 601 Weight 80.3 kg Intake: IV 1101 Output: Estimated Blood Loss 500 Other: # Voids 1 4 1 - Exam PHYSICAL EXAMINATION: Patient is lying in the bed comfortably, no acute distress, awake alert and oriented.. HEENT: Normocephalic. Neck is supple. Pupils reactive. Nostrils clear. Oral cavity is moist. Neck reveals no JVD, carotid bruits, or thyromegaly. CHEST EXAMINATION: Trachea is central. Symmetrical expansion. Lung fitzpatrick clear to auscultation and percussion. CARDIAC: Normal S1, S2 with no gallops. No murmurs ABDOMEN: Soft. Bowel sounds normal. No organomegaly. No abdominal bruits. Extremities: reveal no edema. No clubbing or cyanosis Neurologically awake, alert, oriented x3 with well-coordinated movements. No focal deficits noted Skin: No rash or skin lesions. Psychiatric: Coperative. Nonsuicidal Musculoskeletal: No joint swelling or deformity. Right hip surgical site bandaged. No leg swelling.. - Labs CBC & Chem 7: 07/06/23 08:23 07/06/23 08:23 Labs: Abnormal Lab Results - Last 24 Hours (Table) 07/06/23 07/06/23 Range/Units 08:23 08:23 RBC 3.37 L (3.80-5.40) m/uL Hgb 9.7 L (11.4-16.0) gm/dL Hct 30.5 L (34.0-46.0) % Plt Count 147 L (150-450) k/uL Lymphocytes # 0.8 L (1.0-4.8) k/uL Sodium 136 L (137-145) mmol/L Potassium 3.4 L (3.5-5.1) mmol/L Glucose 127 H (74-99) mg/dL Calcium 8.3 L (8.4-10.2) mg/dL Assessment and Plan Assessment: Status post right total hip arthroplasty postoperative day 1 Fibromyalgia Hypertension uncontrolled Hyperlipidemia Osteoarthritis Obstructive sleep apnea not using CPAP at home History of migraine headaches Asthma/COPD not in exacerbation History of CVA/TIA with no residual weakness Prior history of neck surgery and left shoulder surgery Depression DVT and GI prophylaxis as per primary team Plan: Patient will be continued on pain management, bowel regimen and encourage incentive spirometry. Patient was started back on home blood pressure medications and titrate dose as needed. continue with GI and DVT prophylaxis as per primary team. Monitor H&H PT OT is on board.. Further recommendations based on the clinical course. Anticipate discharge to home with home care versus rehab.
[2023-07-07] MEDS: LOSARTAN-HCTZ 50-12.5 MG 1 EACH TAB PO SCH (07:41)
--- NOTE | 2023-07-07 11:48 | P.PN ---
Subjective Progress Note Date: 07/07/23 This is a 78-year-old fe male who is status post right total hip arthroplasty with direct anterior approach. This is postoperative day #2 and patient is seen and evaluated at bedside today. Patient states that her pain is well controlled today. Objective - Vital Signs Vital signs: Vital Signs Temp 98.4 F 07/07/23 07:18 Pulse 80 07/07/23 07:18 Resp 19 07/07/23 07:18 BP 154/73 07/07/23 07:18 Pulse Ox 95 07/07/23 07:18 FiO2 Intake & Output 07/06/23 07/07/23 07/07/23 18:59 06:59 18:59 Other: # Voids 2 7 1 # Bowel Movements 2 1 - Exam Vital signs are stable. Patient is in no acute distress and is alert and oriented 3. Calf is soft and nontender to palpation. Dressing is clean, dry, and intact. Patient has full foot and ankle motion without pain or difficulty. Sensation intact. Neurovascular status and circulatory status are intact. - Labs CBC & Chem 7: 07/06/23 08:23 07/06/23 08:23 Assessment and Plan (1) Osteoarthritis of right hip Current Visit: Yes Status: Acute Code(s): M16.11 - UNILATERAL PRIMARY OSTEOARTHRITIS, RIGHT HIP SNOMED Code(s): 429582074756129 (2) S/P total right hip arthroplasty Current Visit: Yes Status: Acute Code(s): Z96.641 - PRESENCE OF RIGHT ARTIFICIAL HIP JOINT SNOMED Code(s): 914638939538 Plan: Continue routine postop care and pain control. Continue anticoagulation with aspirin 81mg BID. Weightbearing as tolerated with a walker. Leave dressing in place for 7 days. Appreciate input from internal medicine. Anticipate discharge to [facility] tomorrow.
--- NOTE | 2023-07-07 22:19 | P.PN ---
Subjective Progress Note Date: 07/07/23 Patient is a 78-year-old female with a past medical history of COPD, fibromyalgia, history of CVA with no residual weakness, migraine headaches, hypertension, hyperlipidemia, fibroatelectasis, obstructive sleep apnea not on CPAP, hiatal hernia, IBS, prior history of back surgery and neck surgery, depression and other multiple medical problems was admitted to the hospital for right total hip arthroplasty. Patient's blood pressure was elevated up to 199 over 61 mmHg perioperatively. Currently complains of right hip pain. Denies any dizziness or lightheadedness. Does have nausea. No episodes of vomiting. Denies any fever or chills. No complaints of chest pain or shortness of breath. Laboratory data is not available at this time. 07/06/2023 Patient is lying in the bed. Awake alert and oriented. Complains of soreness of the surgical site. No complaints of chest pain or shortness of breath. No nausea vomiting abdominal pain or diarrhea. Blood pressure is elevated today and will be started back on home blood pressure medications. No complaints of fever or chills. No cough or sputum production. Patient is using incentive spirometry. WBC 7.3, hemoglobin 9.7 and platelets 147, sodium 136 potassium 3.4 which is replaced with chloride 101 bicarb is 27 BUN 10 and creatinine 0.55 and blood sugar 127. Calcium 8.3. 07/07/2023 Patient is currently sitting in the chair. Awake alert and oriented x 3. Was able to walk with physical therapy. No complaints of chest pain or shortness of breath. Right hip pain is improving compared to yesterday. No complaints of nausea or vomiting or abdominal pain. Tolerating oral diet. Patient was started back on blood pressure medications. No headache or dizziness or lightheadedness. Patient is participating in PT OT. Current medications reviewed. Objective - Vital Signs Vital signs: Vital Signs Temp 98.4 F 07/07/23 07:18 Pulse 80 07/07/23 07:18 Resp 19 07/07/23 07:18 BP 154/73 07/07/23 07:18 Pulse Ox 95 07/07/23 07:18 FiO2 Intake & Output 07/06/23 07/07/23 07/07/23 18:59 06:59 18:59 Other: # Voids 2 7 1 # Bowel Movements 2 1 - Exam PHYSICAL EXAMINATION: Patient is lying in the bed comfortably, no acute distress, awake alert and oriented.. HEENT: Normocephalic. Neck is supple. Pupils reactive. Nostrils clear. Oral cavity is moist. Neck reveals no JVD, carotid bruits, or thyromegaly. CHEST EXAMINATION: Trachea is central. Symmetrical expansion. Lung fitzpatrick clear to auscultation and percussion. CARDIAC: Normal S1, S2 with no gallops. No murmurs ABDOMEN: Soft. Bowel sounds normal. No organomegaly. No abdominal bruits. Extremities: reveal no edema. No clubbing or cyanosis Neurologically awake, alert, oriented x3 with well-coordinated movements. No focal deficits noted Skin: No rash or skin lesions. Psychiatric: Coperative. Nonsuicidal Musculoskeletal: No joint swelling or deformity. Right hip surgical site bandaged. No leg swelling.. - Labs CBC & Chem 7: 07/06/23 08:23 07/06/23 08:23 Assessment and Plan Assessment: Status post right total hip arthroplasty postoperative day 2 Fibromyalgia Hypertension uncontrolled. Controlled now. Hyperlipidemia Osteoarthritis Obstructive sleep apnea not using CPAP at home History of migraine headaches Asthma/COPD not in exacerbation History of CVA/TIA with no residual weakness Prior history of neck surgery and left shoulder surgery Depression DVT and GI prophylaxis as per primary team Plan: Patient will be continued on pain management, bowel regimen and encourage incentive spirometry. Patient was started back on home blood pressure medications and titrate dose as needed. continue with GI and DVT prophylaxis as per primary team. Monitor H&H PT OT is on board.. Further recommendations based on the clinical course. Anticipate discharge in the next 24 hours. Time with Patient: Greater than 30
[2023-07-08 02:58] VITALS: PULSE 87
[2023-07-08 07:21] LABS: Basophils % (A) 0 %; Eosinophils # (A) 0.1 k/uL (0-0.7); Eosinophils % (A) 2 %; HCT 25.5 % (34.0-46.0); Lymphocytes # (A) 0.9 k/uL (1.0-4.8); Lymphocytes % (A) 18 %; MCH 28.8 pg (25.0-35.0); MCHC 31.8 g/dL (31.0-37.0); MCV 90.4 fL (80.0-100.0); Monocytes # (A) 0.4 k/uL (0-1.0); Monocytes % (A) 8 %; Neutrophils # (A) 3.5 k/uL (1.3-7.7); Neutrophils % (A) 68 %; Platelet Count 134 k/uL (150-450); RBC 2.82 m/uL (3.80-5.40); RDW 13.3 % (11.5-15.5); WBC 5.1 k/uL (3.8-10.6)
[2023-07-08 07:25] LABS: HGB 8.1 gm/dL (11.4-16.0)
[2023-07-08 09:04] LABS: Blood Urea Nitrogen 6.6 mg/dL (9.0-27.0); Calcium 8.7 mg/dL (8.7-10.3); Carbon Dioxide 29.1 mmol/L (21.6-31.8); Chloride 101 mmol/L (96-109); Glucose 100 mg/dL (70-110); Potassium 4.1 mmol/L (3.5-5.5); Sodium 140 mmol/L (135-145)
[2023-07-08 09:07] VITALS: BP 163/74; RESP 19; TEMP 99
--- NOTE | 2023-07-08 10:07 | P.DS ---
Providers Date of admission: 07/05/23 08:46 Expected date of discharge: 07/08/23 Attending physician: Ebenezer Duckworth Consults: 07/05/23 08:46 Consult Physician Routine Consulting Provider: Delfino Schmid Consult Reason/Comments: medical management Do you want consulting provider notified?: Yes Primary care physician: Lon Nova - Discharge Diagnosis(es) (1) Osteoarthritis of right hip Current Visit: Yes Status: Acute (2) S/P total right hip arthroplasty Current Visit: Yes Status: Acute Hospital Course: This is a 78-year-old female with known history of degenerative arthritis of the right hip. The patient presented for evaluation as an outpatient. After discussion and consideration patient elects to proceed with total hip arthroplasty. The patient is seen preoperatively by Dr. Duckworth and medically cleared for surgery by their primary care physician. Patient is admitted to [facility] on 07/05/2023 for total hip arthroplasty. The procedure is performed without complication or sequelae. The patient is doing well postoperatively. Labs and vital signs are stable on day of discharge. On day of discharge patient's hip incision is healing well. There is minimal erythema. There is no drainage noted at this time. There is minimal soft tissue swelling to the hip and thigh. Patient has full foot and ankle motion without difficulty or pain. Calf is soft and nontender to palpation. Neurovascular status to the right lower extremity is intact. Patient is discharged to rehab in good condition. Please see [facility] rec for accurate list of home medications. Plan - Discharge Summary Discharge Rx Participant: No New Discharge Prescriptions: New HYDROcodone/APAP 7.5-325MG [Redford 7.5-325] 1 - 2 tab PO Q6H PRN #32 tab PRN Reason: Pain Aspirin [Adult Low Dose Aspirin EC] 81 mg PO BID 30 Days #60 tab Sennosides [Senokot] 2 tab PO DAILY PRN #60 tablet PRN Reason: Constipation Pantoprazole [Protonix] 40 mg PO DAILY 30 Days #30 tab Continue Furosemide [Lasix] 40 mg PO DAILY PRN PRN Reason: Edema Potassium Chloride ER [K-Dur 10] 10 meq PO DAILY PRN PRN Reason: leg cramps Fluticasone Nasal [place] [Flonase Nasal [place]] 1 spray EA NOSTRIL DAILY PRN PRN Reason: Allergy Symptoms Cholecalciferol (Vitamin D3) [Vitamin D3] 5,000 unit PO DAILY Vitamin E (Dl,Tocopheryl Acet) [Vitamin E] 100 unit PO DAILY Morphine Pump(Dose Unknown) 1 applicate EPIDURAL CONTINUOUS Losartan-Hctz 50-12.5 mg [Hyzaar 50-12.5] 1 tab PO QAM Sertraline [Zoloft] 100 mg PO QAM Montelukast [Singulair] 10 mg PO HS Metoprolol Succinate (ER) [Toprol XL] 50 mg PO QAM Pantoprazole [Protonix] 40 mg PO QAM Albuterol Sulfate [Proair Digihaler] 1 puff INHALATION DAILY PRN PRN Reason: Shortness Of Breath Or Wheezing Changed Baclofen 10 mg PO TID PRN #0 PRN Reason: Spasms Discontinued Hydrocodone/Acetaminophen [Redford 10-325] 1 tab PO Q6H PRN PRN Reason: Pain Docusate [Colace] 100 mg PO DAILY Discharge Medication List Cholecalciferol (Vitamin D3) [Vitamin D3] 5,000 unit PO DAILY 12/12/18 [History] Fluticasone Nasal [place] [Flonase Nasal [place]] 1 spray EA NOSTRIL DAILY PRN 12/12/18 [History] Furosemide [Lasix] 40 mg PO DAILY PRN 12/12/18 [History] Morphine Pump(Dose Unknown) 1 applicate EPIDURAL CONTINUOUS 12/12/18 [History] Potassium Chloride ER [K-Dur 10] 10 meq PO DAILY PRN 12/12/18 [History] Vitamin E (Dl,Tocopheryl Acet) [Vitamin E] 100 unit PO DAILY 12/12/18 [History] Albuterol Sulfate [Proair Digihaler] 1 puff INHALATION DAILY PRN 01/07/23 [History] Losartan-Hctz 50-12.5 mg [Hyzaar 50-12.5] 1 tab PO QAM 01/07/23 [History] Metoprolol Succinate (ER) [Toprol XL] 50 mg PO QAM 01/07/23 [History] Montelukast [Singulair] 10 mg PO HS 01/07/23 [History] Pantoprazole [Protonix] 40 mg PO QAM 01/07/23 [History] Sertraline [Zoloft] 100 mg PO QAM 01/07/23 [History] HYDROcodone/APAP 7.5-325MG [Redford 7.5-325] 1 - 2 tab PO Q6H PRN #32 tab 07/05/23 [Rx] Sennosides [Senokot] 2 tab PO DAILY PRN #60 tablet 07/05/23 [Rx] Aspirin [Adult Low Dose Aspirin EC] 81 mg PO BID 30 Days #60 tab 07/06/23 [Rx] Pantoprazole [Protonix] 40 mg PO DAILY 30 Days #30 tab 07/06/23 [Rx] Baclofen 10 mg PO TID PRN #0 07/07/23 [Rx] Follow up Appointment(s)/Referral(s): Ebenezer Duckworth DO [Doctor of Osteopathic Medicine] - 2 Weeks Activity/Diet/Wound Care/Special Instructions: Weightbearing as tolerated with walker. Leave dressing intact. Dressing may be removed by home care nurse or by patient in 7 days. Then change dressing twice daily until follow up. May shower with initial dressing intact and after removal. If dressing become saturated, please remove. Please take aspirin 81mg twice daily for 30 days to prevent blood clots. Recommend use of compression stockings daily until follow up to help prevent swelling and blood clots. May remove at night before sleeping. Please follow-up with [facility] in 2 weeks and call with any questions or concerns, . Discharge Disposition: TRANSFER TO SNF/ECF
--- NOTE | 2023-07-10 11:11 | P.PN ---
Subjective Progress Note Date: 07/08/23 Patient is a 78-year-old female with a past medical history of COPD, fibromyalgia, history of CVA with no residual weakness, migraine headaches, hypertension, hyperlipidemia, fibroatelectasis, obstructive sleep apnea not on CPAP, hiatal hernia, IBS, prior history of back surgery and neck surgery, depres angela and other multiple medical problems was admitted to the hospital for right total hip arthroplasty. Patient's blood pressure was elevated up to 199 over 61 mmHg perioperatively. Currently complains of right hip pain. Denies any dizziness or lightheadedness. Does have nausea. No episodes of vomiting. Denies any fever or chills. No complaints of chest pain or shortness of breath. Laboratory data is not available at this time. 07/06/2023 Patient is lying in the bed. Awake alert and oriented. Complains of soreness of the surgical site. No complaints of chest pain or shortness of breath. No nausea vomiting abdominal pain or diarrhea. Blood pressure is elevated today and will be started back on home blood pressure medications. No complaints of fever or chills. No cough or sputum production. Patient is using incentive spirometry. WBC 7.3, hemoglobin 9.7 and platelets 147, sodium 136 potassium 3.4 which is replaced with chloride 101 bicarb is 27 BUN 10 and creatinine 0.55 and blood sugar 127. Calcium 8.3. 07/07/2023 Patient is currently sitting in the chair. Awake alert and oriented x 3. Was able to walk with physical therapy. No complaints of chest pain or shortness of breath. Right hip pain is improving compared to yesterday. No complaints of nausea or vomiting or abdominal pain. Tolerating oral diet. Patient was started back on blood pressure medications. No headache or dizziness or lightheadedness. Patient is participating in PT OT. 07/08/2023 Patient is seen in follow-up this morning has received insurance authorization and will be going to [facility] for continued rehab status post right total hip arthroplasty. Patient is afebrile denies chest pain or shortness of breath. Patient tolerating diet well reported nausea or vomiting. Patient has been instructed to continue with incentive spirometer and continue using at least 10 times every hour while awake. Patient instructed to follow-up with primary care provider on discharge. Review of systems: Constitutional: No reports of fatigue, fever, or chills Cardiovascular: No reports of chest pain or palpitations Respiratory: No reports of shortness of breath or cough GI: No reports of nausea, vomiting, or diarrhea : No reports of dysuria or retention Neurovascular: reports of generalized weakness All medications have been reviewed PHYSICAL EXAMINATION: Patient is lying in the bed comfortably, no acute distress, awake alert and oriented.. HEENT: Normocephalic. Neck is supple. Pupils reactive. Nostrils clear. Oral cavity is moist. Neck reveals no JVD, carotid bruits, or thyromegaly. CHEST EXAMINATION: Trachea is central. Symmetrical expansion. Lung fitzpatrick clear to auscultation and percussion. CARDIAC: Normal S1, S2 with no gallops. No murmurs ABDOMEN: Soft. Bowel sounds normal. No organomegaly. No abdominal bruits. Extremities: reveal no edema. No clubbing or cyanosis Neurologically awake, alert, oriented x3 with well-coordinated movements. No f ocal deficits noted Skin: No rash or skin lesions. Psychiatric: Coperative. Nonsuicidal Musculoskeletal: No joint swelling or deformity. Right hip surgical site bandaged. No leg swelling.. Assessment: Status post right total hip arthroplasty Fibromyalgia Hypertension uncontrolled. Controlled now. Hyperlipidemia Osteoarthritis Obstructive sleep apnea not using CPAP at home History of migraine headaches Asthma/COPD not in exacerbation History of CVA/TIA with no residual weakness Prior history of neck surgery and left shoulder surgery Depression DVT and GI prophylaxis as per primary team Plan: Patient will be continued on pain management, bowel regimen and encourage incentive spirometry. Patient instructed to take the incentive spirometer with her to ECF and continue using at least 10 times every hour while awake Patient was started back on home blood pressure medications and titrate dose as needed. continue with GI and DVT prophylaxis as per primary team. PT OT has evaluated the patient and patient is agreeable. Case management following working on insurance authorization which has been obtained and patient will be going to [facility] today. Patient is medically stable for discharge today. Thank you. For this consultation. We will continue to follow with orthopedics during hospitalization. The impression and plan of care has been dictated by Danii Yang, Nurse Practitioner as directed. Dr. Jesus MD I have performed a history and examination and MDM of this patient, discussed the same with the dictator, and agree with the dictator's assessment and plan as written ,documented as a scribe. Based on total visit time, I have performed more than 50% of the visit. Objective - Vital Signs Vital signs: Vital Signs Temp 99.0 F 07/08/23 07:09 Pulse 87 07/08/23 07:09 Resp 19 07/08/23 07:09 BP 163/74 07/08/23 07:09 Pulse Ox 93 L 07/08/23 07:42 FiO2 - Labs CBC & Chem 7: 07/08/23 05:47 07/08/23 05:47
== END 2023-07-08 12:12 | DRG 470 ==
LOC: OR 05:38 → 4SSUR 08:46
PROVIDERS: ADMIT Orthopaedic Surgery; ATTEND Orthopaedic Surgery
PROC: 3E0T3BZ Introduction of Anesthetic Agent into Peripheral Nerves and Plexi, Percutaneous Approach (ICD-10-PCS; 2023-07-05)
PROC: 0SR902A Replacement of Right Hip Joint with Metal on Polyethylene Synthetic Substitute, Uncemented, Open Approach (ICD-10-PCS; principal; 2023-07-05 07:00)
DX: M16.11 Unilateral primary osteoarthritis, right hip (principal); I10 Essential (primary) hypertension; E78.5 Hyperlipidemia, unspecified; M79.7 Fibromyalgia; G47.33 Obstructive sleep apnea (adult) (pediatric); G43.909 Migraine, unspecified, not intractable, without status migrainosus; J44.89 Other specified chronic obstructive pulmonary disease; F32.A Depression, unspecified; Z91.041 Radiographic dye allergy status; Z90.710 Acquired absence of both cervix and uterus; Z90.49 Acquired absence of other specified parts of digestive tract; Z98.51 Tubal ligation status
CPT/HCPCS: 64447; 73501; 80048; 85025; 94760

== ENCOUNTER 2023-12-03 06:30 | Day surgery (SDC) | payer MEDICARE ==
--- NOTE | 2023-12-22 16:30 | OP ---
OPERATIVE REPORT DATE OF SERVICE : 12/03/2023 REQUESTING PHYSICIAN: Dr. Mackey. BRIEF HISTORY: The patient is a 78-year-old pleasant white female scheduled for an upper endoscopy as a part of evaluation of epigastric pain postprandially associated with nausea, occasional emesis, and intermittent dysphagia to solids and pills for the last several months duration. PROCEDURE PERFORMED: Esophagogastroduodenoscopy with biopsy. PREOPERATIVE DIAGNOSES: Epigastric pain, intermittent nausea, vomiting, and dysphagia to solids. ANESTHESIA: IV sedation per Anesthesia. DESCRIPTION OF PROCEDURE: After informed consent was obtained from the patient, she was brought into the endoscopy unit. IV conscious sedation was administered by Anesthesia on a continuous monitoring. Initially, Olympus CF-180 video endoscope was inserted into the mouth and esophagus and intubated without any difficulty and was gradually advanced into the stomach and duodenum and carefully examined. Bulb and the second part of the duodenum appeared normal. The scope at this time was withdrawn to the stomach, adequately insufflated with air and upon careful examination because of the antrum had mild linear course of erythema consistent with gastritis, biopsies were done of this area. The body of the stomach appeared normal. On retroflexion, cardia and fundus appeared normal. Scope was then withdrawn to the esophagus. The GE junction was located at 40 cm from the incisors. It appeared regular with no erythema, erosions, or ulcerations. The entire length of esophagus appeared normal and the patient tolerated the procedure well. There was evidence of mild tightness in the upper esophageal sphincter consistent with mild cricopharyngeal dysfunction. No evidence of Zenker's diverticulum. The patient tolerated the procedure well. IMPRESSION: 1. Mild cricopharyngeal dysfunction. 2. Diffuse antral gastritis. 3. No evidence of esophagitis or esophageal stricture. RECOMMENDATIONS: Findings of this examination were discussed with the patient as well as the family. She was advised to follow up with the biopsy results. Continue with current medications and follow up in the office as needed. MMODL / IJN: [id number] /
== END 2023-12-03 15:40 ==
LOC: ORWHC2ENDO 06:30
PROVIDERS: ATTEND Internal Medicine Gastroenterology
DX: R13.10 Dysphagia, unspecified (principal)
CPT/HCPCS: 43239